=== PATIENT | female | born 1960 | race Caucasian/White ===

== ENCOUNTER → 2017-08-25 | Outpatient (CLI) | payer BC ==
[~2017-08-25] MED LIST: ALESSE-281 EACH PO; CALCIUM W/VIT1 EACH PO; CLARITIN10 MG PO; LEVOTHYROXIN0.112 M1 PO; LISINOPRIL5 MG PO; LORTAB PO; MULTIPLE VITAM1 EAC3 PO; NORCO 5-325 TA1 EACH PO; ONDANSETRON HCL4 M2 PO; VITAMINC500 PO
== END ==
LOC: RAD 04:21
DX: Z12.31 Encounter for screening mammogram for malignant neoplasm of breast (principal)